=== PATIENT | male | born 1990 | race Caucasian/White ===

== ENCOUNTER → 2016-06-30 | Outpatient (CLI) | payer BC ==
--- NOTE | 2016-06-30 14:57 | RAD ---
CT abdomen and pelvis without contrast History: Bilateral flank pain, worse on the right for 2 weeks, hematuria. Comparison: None. Technique: Helical CT of the abdomen and pelvis was performed without intravenous or oral contrast. Axial, sagittal, and coronal reconstructions were obtained. One or more of the following individualized dose reduction techniques were utilized for the study: Automated exposure control Adjustment of mA and/or kV according to patient's size Use of iterative reconstruction technique. Findings: Evaluation of the solid organs is limited by lack of intravenous contrast. Evaluation of enteric structures may be limited by lack of oral contrast. Liver, spleen, pancreas, gallbladder, and bilateral adrenal glands are unremarkable. There is no evidence of bowel obstruction. No free air or free fluid is identified in the abdomen or pelvis. Appendix appears within normal limits. Urinary bladder is unremarkable. The intertrochanteric right femur demonstrates a geographic lytic lesion with a thin sclerotic margin; a lesion measures approximately a 4.5 cm in length when measured in an oblique fashion on the coronal images.. This has internal Hounsfield units of approximately 30. Impression: 1. No acute abnormality identified in the abdomen or pelvis. No evidence of urinary stone. 2. Geographic lytic lesion involving the intertrochanteric right femur with thin sclerotic margin. This finding is nonspecific, but possible etiologies include fibrous dysplasia, aneurysmal bone cyst, Langerhans cell histiocytosis, or giant cell tumor. MR imaging without and with intravenous contrast might provide additional useful information.
== END | disposition home or self-care (01) ==
LOC: CT 12:23
PROVIDERS: ATTEND Family Medicine
DX: R10.9 Unspecified abdominal pain (principal); R31.1 Benign essential microscopic hematuria
CPT/HCPCS: 74176